=== PATIENT | male | born 1990 | race African-American/Black ===

== ENCOUNTER 2025-01-31 08:35 | Outpatient (CLI) | payer BC, SELFPAY | END 2025-01-31 08:36 | disposition home or self-care (01) | LOC: NFLDREF 02-01 20:42 | PROVIDERS: PCP Physician Assistant Medical; Referring Provider Physician Assistant Medical; Visit Provider Physician Assistant Medical | DX: E11.65 Type 2 diabetes mellitus with hyperglycemia (principal); E78.2 Mixed hyperlipidemia; Z84.89 Family history of other specified conditions | CPT/HCPCS: 80053; 80061; 82043; 82570; 84443; 88262 ==

== ENCOUNTER 2025-05-26 12:33 | Outpatient (CLI) | payer BC, SELFPAY | END 2025-05-26 12:34 | disposition home or self-care (01) | LOC: NFLDREF 05-30 12:34 | PROVIDERS: PCP Physician Assistant Medical; Referring Provider Physician Assistant Medical; Visit Provider Physician Assistant Medical | DX: E34.52 Partial androgen insensitivity syndrome (principal) | CPT/HCPCS: 89322 ==